=== PATIENT | female | born 1960 | race African-American/Black ===

== ENCOUNTER 2016-09-21 22:57 | Emergency (ER) | payer SELFPAY ==
[2016-09-21] MEDS ORDERED: predniSONE 20 MG TAB ONE (23:26)
[2016-09-21] MEDS ORDERED: Azithromycin 250 MG TAB ONE (23:26)
== END 2016-09-21 23:35 | disposition home or self-care (01) ==
LOC: NAV ERS 22:57
DX: I88.9 Nonspecific lymphadenitis, unspecified (principal); I10 Essential (primary) hypertension; Z87.891 Personal history of nicotine dependence; Z79.899 Other long term (current) drug therapy
CPT/HCPCS: 99283; J7506

== ENCOUNTER 2017-05-26 20:58 | Emergency (ER) | payer SELFPAY ==
[2017-05-26] MEDS ORDERED: HYDROcodone/Acetaminophen 5/325 mg Tablet ONE (21:45)
[2017-05-26] MEDS ORDERED: Cephalexin 250 MG CAP ONE (21:45)
== END 2017-05-26 21:52 | disposition home or self-care (01) ==
LOC: NAV ERS 20:58
DX: H57.12 Ocular pain, left eye (principal); I10 Essential (primary) hypertension; Z87.891 Personal history of nicotine dependence; Z79.899 Other long term (current) drug therapy; Z79.82 Long term (current) use of aspirin
CPT/HCPCS: 99282

== ENCOUNTER 2019-03-16 07:37 | Emergency (ER) | payer SELFPAY ==
[2019-03-16] MEDS ORDERED: Dexamethasone 20 MG/5 ML VIAL ONE (08:15)
[2019-03-16] MEDS ORDERED: Sodium Chloride 0.9% 1,000 ML ONE (08:15)
[2019-03-16] MEDS ORDERED: Clindamycin/D5W 600 mg/50 ml Premix Bag ONE (08:15)
[2019-03-16 08:37] LABS: Anion Gap 22 mmol/L (10-20); BUN (Urea Nitrogen) 18 mg/dL (9.8-20.1); Calc. Creatinine Clearance 0 mL/min (70-130); Carbon Dioxide 19 mmol/L (22-29); Chloride 100 mmol/L (98-107); Estimated GFR-MDRD Greater than 90; Glucose 137 mg/dL (70-105); Potassium 3.7 mmol/L (3.5-5.1); Sodium 137 mmol/L (136-145)
[2019-03-16 08:52] LABS: Hemoglobin 14.4 g/dL (12.0-16.0); MDiff Complete? YES; Mean Corpuscular HGB CONC 31.3 g/dL (32.0-36.0); Mean Corpuscular Hemoglobin 29.2 pg (27.0-31.0); Mean Corpuscular Volume 93.5 fL (78.0-98.0); Mean Platelet Volume 10.5 fL (7.4-10.4); Platelet Count 264 thou/uL (130-400); RBC Distribution Width 12.1 % (11.5-14.5); Red Blood Cell (RBC) Count 4.94 mill/uL (4.20-5.40); White Blood Cell (WBC) Count 14.7 thou/uL (4.8-10.8)
[2019-03-16 08:53] LABS: Lymphocytes 20 % (21-51); Monocytes 10 % (0-10); Neutrophil 70 % (42-75); Platelet Morphology Comment Appears Adequate
[2019-03-16] MEDS ORDERED: Iopamidol 370 76% 100 ML VIAL ONE (09:00)
--- NOTE | 2019-03-16 09:01 | RAD ---
XR Chest 1 View Portable HISTORY: Hypoxemia, sore throat COMPARISON: None FINDINGS: The heart size is normal. The lungs are well expanded without focal areas of consolidation, pneumothorax or pleural effusions. IMPRESSION: No radiographic evidence of acute cardiopulmonary process.
--- NOTE | 2019-03-16 10:20 | CT ---
CT NECK SOFT TISSUES WITH IV CONTRAST: Date: 03/16/2019 HISTORY: 58-year-old female with sore throat and tongue abscess. COMPARISON: 04/13/2015. FINDINGS: In the upper mediastinum, the right anterior paratracheal mass that previously measured approximately 2.8 x 1.7 x 2.7 cm, has grown to current dimensions of approximately 3.1 x 2.1 cm in AP and transver se dimensions, respectively. The inferior aspect of this mass is excluded from the images covered, an d therefore the craniocaudal dimension is unknown. Density is 3 HU, consistent with a cystic mass. Again noted is the partially exophytic rim calcified mass protruding from the left lobe of the thyroi d gland, currently measuring 1.2 x 1.3 x 1.6 cm, benign. There are several mildly enlarged right Level II and III lymph nodes, similar in appearance to the pr evious CT. Similar to the previous CT, the right submandibular gland enhances asymmetrically to a greater degree than the left. Furthermore, there is edematous tissue surrounding the superior portion of the right submandibular gland, again similar to previous CT. The previously demonstrated dilation of right Thomas's duct is more severe now. The multiple sialoli ths within this severely dilated submandibular gland have all grown in size. For example, at the ante rior aspect of the right sublingual space, the previously 4 mm sialolith currently measures approxima tely 11 x 6 x 10 mm. Approximately 10-20 mm posterior to that, the next sialolith has currently grown to 7 x 12 x 8 mm. Posterior to that, there are two calculi abutting each other. The more posterior one measures approxi mately 10 x 9 x 9 mm. The dilation of the right submandibular duct is greatest around this location, with caliber of approx imately 11 x 17 mm. At the 17 mm diameter segment, this may or may not represent an abscess communica ting with the severely dilated Thomas's duct (coronal image 36 of 114, series 602; sagittal image 48 of 114, series 601) There is a new finding of asymmetric enlargement of right palatine tonsil, effacing the right glossop haryngeal sulcus. Mild fat stranding from the submandibular sialadenitis spills over into mild edema in the right parap haryngeal space. Vinny's ducts and bilateral parotid glands are unremarkable. Left submandibular gland is unremarkable. Nonspecific diffuse mucosal thickening of the larynx. No retropharyngeal abscess. High grade cervical spondylosis. IMPRESSION: 1. Right-sided severe submandibular sialolithiasis, and severe, occlusive obstructive submandibular (Thomas's) duct ectasia, associated with sialadenitis of the right submandibular gland. 2. Asymmetrical enlargement of the region of the right palatine tonsil. Uncertain whether this repre sents inflammation/infection or primary malignant neoplasm. Recommend direct visualization. 3. Slow interval growth of cystic mass in right upper mediastinum, incompletely imaged. 4. Benign eggshell calcified left thyroid nodule. 5. With regard to the severe right Crittenden's ductal ectasia, there is a possibility that this commun icates with what is questionably a small abscess in the right sublingual space. 6. Otolaryngology consultation is strongly recommended. POS: [facility]
== END 2019-03-16 10:30 | disposition short-term general hospital (02) ==
LOC: NAV ERS 07:37
DX: K12.2 Cellulitis and abscess of mouth (principal); K11.5 Sialolithiasis; E11.9 Type 2 diabetes mellitus without complications; E78.5 Hyperlipidemia, unspecified; I10 Essential (primary) hypertension; Z87.891 Personal history of nicotine dependence; Z79.82 Long term (current) use of aspirin; Z79.899 Other long term (current) drug therapy
CPT/HCPCS: 70491; 71045; 80048; 83605; 85025; 87040; 87070; 87205; 96365; 96375; J1100; J3490; J7050; Q9967

== ENCOUNTER 2019-12-31 10:36 | Emergency (ER) | payer SELFPAY ==
--- NOTE | 2019-12-31 11:42 | RAD ---
Left Little finger 3 views HISTORY: Injury. FINDINGS: There is full shaft width posterior displacement at the proximal interphalangeal joint with overriding of fragments by approximately 4 mm. Arthritic changes are apparent. No fracture fragments. IMPRESSION : Posterior dislocation proximal interphalangeal joint.
--- NOTE | 2019-12-31 11:43 | RAD ---
Left little finger 2 views HISTORY: Finger dislocation. FINDINGS: Oblique and lateral views are included. Mild osteoarthritic changes. Dislocation of the proximal interphalangeal joint has been reduced. No fractures visible.
== END 2019-12-31 11:55 | disposition home or self-care (01) ==
LOC: NAV ERS 10:36
DX: S63.287A Dislocation of proximal interphalangeal joint of left little finger, initial encounter (principal); I10 Essential (primary) hypertension; E11.9 Type 2 diabetes mellitus without complications; E78.00 Pure hypercholesterolemia, unspecified; Z87.891 Personal history of nicotine dependence; Z79.899 Other long term (current) drug therapy; W31.89XA Contact with other specified machinery, initial encounter

== ENCOUNTER 2020-04-12 11:35 | Emergency (ER) | payer SELFPAY ==
[2020-04-12 21:54] LABS: SARS-CoV-2 PCR by NAA Not Detected (NotDetected)
== END 2020-04-12 12:00 | disposition home or self-care (01) ==
LOC: NAV ERS 11:35
DX: J02.9 Acute pharyngitis, unspecified (principal); J34.89 Other specified disorders of nose and nasal sinuses; R06.02 Shortness of breath; Z20.822 Contact with and (suspected) exposure to COVID-19; I10 Essential (primary) hypertension; E11.9 Type 2 diabetes mellitus without complications; E78.00 Pure hypercholesterolemia, unspecified; Z87.891 Personal history of nicotine dependence; Z79.82 Long term (current) use of aspirin; Z79.899 Other long term (current) drug therapy
CPT/HCPCS: 87635; 99283; U0003; U0005

== ENCOUNTER 2020-08-17 18:39 | Emergency (ER) | payer OTHER, SELFPAY ==
[2020-08-17] MEDS ORDERED: Fentanyl 100 MCG/2 ML VIAL ONE (19:09)
== END 2020-08-17 19:43 | disposition home or self-care (01) ==
LOC: NAV ERS 18:39
DX: M16.0 Bilateral primary osteoarthritis of hip (principal); I10 Essential (primary) hypertension; E11.9 Type 2 diabetes mellitus without complications; E78.00 Pure hypercholesterolemia, unspecified; Z87.891 Personal history of nicotine dependence; Z79.82 Long term (current) use of aspirin; Z79.899 Other long term (current) drug therapy
CPT/HCPCS: 96374; J3010

== ENCOUNTER 2023-01-17 12:35 | Emergency (ER) | payer SELFPAY ==
[~2023-01-17 12:35] MED LIST: Iopamidol 370 76% 100 ML VIAL ONE
[2023-01-17] MEDS ORDERED: Acetaminophen 500 MG TAB ONE (13:03)
[2023-01-17] MEDS ORDERED: Insulin Regular 300 UNITS/3 ML VIAL ONE (13:38)
[2023-01-17 13:40] LABS: #Basophils 0.2 thou/uL (0.0-0.2); #Lymphocytes 1.3 thou/uL (1.20-3.40); #Monocytes 0.9 thou/uL (0.11-0.59); #Neutrophils 7.8 thou/uL (1.40-6.50); %Basophils 1.6 % (0.0-1.0); %Eosinophils 0.3 % (0.0-10.0); %Lymphocytes 12.4 % (21.0-51.0); %Neutrophils 76.8 % (42.0-75.0); Hematocrit 42.2 % (36.0-47.0); Hemoglobin 14.2 g/dL (12.0-16.0); Mean Corpuscular HGB CONC 33.6 g/dL (32.0-36.0); Mean Corpuscular Hemoglobin 30.3 pg (27.0-31.0); Mean Corpuscular Volume 90.1 fl (78.0-98.0); Mean Platelet Volume 11.4 fL (7.4-10.4); Platelet Count 200 10x3/uL (130-400); RBC Distribution Width 10.5 % (11.5-14.5); Red Blood Cell (RBC) Count 4.68 mill/uL (4.20-5.40); White Blood Cell (WBC) Count 10.2 10x3/uL (4.8-10.8)
[2023-01-17 13:44] LABS: Anion Gap 17 mmol/L (10-20); BUN (Urea Nitrogen) 16 mg/dL (9.8-20.1); Calc. Creatinine Clearance 0 mL/min (70-130); Carbon Dioxide 25 mmol/L (23-31); Chloride 99 mmol/L (98-107); Potassium 3.8 mmol/L (3.5-5.1); Sodium 137 mmol/L (136-145)
[2023-01-17 13:45] LABS: ALT (SGPT) 10 U/L (8-55); AST (SGOT) 11 U/L (5-34); Albumin 4.4 g/dL (3.4-4.8); Alkaline Phosphatase 177 U/L (40-110); Bilirubin, Total 0.6 mg/dL (0.2-1.2); Calcium 10.8 mg/dL (7.8-10.44); Estimated GFR 79; Globulin 3.4 g/dL (2.4-3.5); Protein, Total 7.8 g/dL (5.8-8.1)
[2023-01-17 13:53] LABS: Glucose 406 mg/dL (80-115); Troponin I 0.024 ng/mL (< 0.028)
[2023-01-17 15:14] LABS: Bilirubin Negative (Negative); Blood, Urine Negative (Negative); Glucose, Urine (Dipstick) >=1000 mg/dL (Negative); Ketone, Urine 40 mg/dL (Negative); Leukocyte Negative (Negative); Nitrite Negative (Negative); Protein, Urine (Dipstick) Negative (Neg-Trace); pH, Urine 6.5 (5.0-9.0)
[2023-01-17 15:24] LABS: Clarity Hazy (Clear)
[2023-01-17 15:25] LABS: CAUTI Indications for Culture Dysuria,urgency,freq; Squamous Epithelial 0-3 HPF (0-3); Urine Culture Reflex No No; WBC/HPF 0-3 HPF (0-3)
[2023-01-17] MEDS ORDERED: fentaNYL 50 mcg/mL 1 mL Vial ONE (18:10)
[2023-01-17] MEDS ORDERED: cefTRIAXone (ROCEPHIN) 1 GM VIAL ONE (18:10)
[2023-01-17] MEDS ORDERED: Sodium Chloride 0.9% 100 ML ONE (18:10)
== END 2023-01-17 20:05 | disposition short-term general hospital (02) ==
LOC: NAV ERS 12:35
DX: K11.5 Sialolithiasis (principal); E11.65 Type 2 diabetes mellitus with hyperglycemia; I10 Essential (primary) hypertension; E78.00 Pure hypercholesterolemia, unspecified; Z87.891 Personal history of nicotine dependence; Z79.899 Other long term (current) drug therapy; Z79.82 Long term (current) use of aspirin
CPT/HCPCS: 36416; 70487; 80053; 81001; 83605; 83880; 84484; 85025; 87040; 93005; 96361; 96374; 96375; J0696; J1815; J3010; J3490; Q9967

== ENCOUNTER 2024-06-29 07:33 | Emergency (ER) | payer OTHER, SELFPAY ==
[2024-06-29] MEDS ORDERED: Dexamethasone 10 MG/ML VIAL ONE (08:20)
[2024-06-29 08:36] LABS: #Basophils 0.1 thou/uL (0.0-0.2); #Eosinophils 0.1 thou/uL (0.0-0.7); #Lymphocytes 1.7 thou/uL (1.20-3.40); #Monocytes 0.9 thou/uL (0.11-0.59); #Neutrophils 3.9 thou/uL (1.40-6.50); %Basophils 1.5 % (0.0-1.0); %Eosinophils 1.4 % (0.0-10.0); %Lymphocytes 24.6 % (21.0-51.0); %Monocytes 13.8 % (0.0-10.0); %Neutrophils 58.7 % (42.0-75.0); Hemoglobin 13.6 g/dL (12.0-16.0); Mean Corpuscular HGB CONC 32.4 g/dL (32.0-36.0); Mean Corpuscular Hemoglobin 28.4 pg (27.0-31.0); Mean Corpuscular Volume 87.6 fl (78.0-98.0); Mean Platelet Volume 7.6 fL (7.4-10.4); Platelet Count 272 10x3/uL (130-400); RBC Distribution Width 11.6 % (11.5-14.5); White Blood Cell (WBC) Count 6.7 10x3/uL (4.8-10.8)
[2024-06-29 08:50] LABS: ALT (SGPT) 15 U/L (Less than 34); AST (SGOT) 27 U/L (11-34); Albumin 3.8 g/dL (3.1-4.5); Alkaline Phosphatase 90 U/L (40-110); Anion Gap 15 mmol/L (10-20); BUN (Urea Nitrogen) 15 mg/dL (9.8-20.1); Bilirubin, Total 0.2 mg/dL (0.3-1.2); Calc. Creatinine Clearance 0 mL/min (70-130); Calcium 10.4 mg/dL (7.8-10.44); Carbon Dioxide 24 mmol/L (23-31); Chloride 106 mmol/L (98-107); Estimated GFR 99; Globulin 4.2 g/dL (2.4-3.5); Glucose 96 mg/dL (80-115); Potassium 3.6 mmol/L (3.5-5.1); Sodium 141 mmol/L (136-145)
[2024-06-29] MEDS ORDERED: Iopamidol 370 76% 100 ML VIAL ONE (09:00)
== END 2024-06-29 10:24 | disposition home or self-care (01) ==
LOC: NAV ERS 07:33
DX: K11.20 Sialoadenitis, unspecified (principal); K11.5 Sialolithiasis; I10 Essential (primary) hypertension; E11.9 Type 2 diabetes mellitus without complications; Z87.891 Personal history of nicotine dependence; Z79.82 Long term (current) use of aspirin; Z79.899 Other long term (current) drug therapy
CPT/HCPCS: 70491; 80053; 83605; 85025; 96374; J1100; Q9967